=== PATIENT | female | born 1935 | race Two or more races ===

== ENCOUNTER 2018-09-09 17:05 | Inpatient (IN) | payer MEDICARE, OTHER ==
[~2018-09-09] VITALS: Ht 152.4 cm; Wt 71.3 kg
[2018-09-09 17:29] VITALS: BP 120/63
[2018-09-09] MEDS ORDERED: MORPHINE SULFATE 4 MG/ML SYR/VIAL IV PRN (18:00)
[2018-09-09] MEDS ORDERED: NITROGLYCERIN 0.4 MG SL TAB SL PRN (18:00)
[2018-09-09] MEDS ORDERED: ACETAMINOPHEN 500 MG TAB PO PRN (18:00)
[2018-09-09] MEDS ORDERED: ONDANSETRON HCL 4 MG/2 ML VIAL IV PRN (18:00)
[2018-09-09] MEDS ORDERED: hydrALAZINE HCL 20 MG/ML VL IV PRN (18:00)
[2018-09-09 18:40] VITALS: BP 120/63
[2018-09-09 19:30] LABS: Basophils # (auto) 0 uL; Basophils % (auto) 0.4 % (0.0-2.0); Eosinophils # (auto) 0.1 uL; Eosinophils % (auto) 1.7 % (0.0-7.0); Hematocrit 41.7 % (36.0-46.0); Hemoglobin 13.9 g/dL (12.2-16.2); Lymphocytes # (auto) 2.3 uL; Lymphocytes % (auto) 40.2 % (10.0-50.0); Mean Corpuscular Hemoglobin 32.7 pg (28.0-32.0); Mean Corpuscular Hgb Conc. 33.3 g/dL (32.0-36.0); Mean Corpuscular Volume 98.1 fL (80.0-100.0); Monocytes # (auto) 0.4 uL; Monocytes % (auto) 7.1 % (0.0-12.0); Neutrophils # (auto) 2.8 uL; Neutrophils % (auto) 50.6 % (37.0-80.0); Nucleated Red Blood Cells % 0.1 %; Platelet Count (auto) 168 10^3/uL (140-450); Red Blood Cells 4.25 10^6/uL (4.0-5.20); Red Cell Distribution Width 16.6 % (11.8-14.3); White Blood Cell 5.6 10^3/uL (4.4-10.8)
[2018-09-09 22:00] VITALS: BP 149/66
[2018-09-10] MEDS ORDERED: AML5T PO (03:11)
[2018-09-10] MEDS ORDERED: BISA-4 PO (03:11)
[2018-09-10] MEDS ORDERED: CARB25TA22 PO (03:11)
[2018-09-10] MEDS ORDERED: ACET-1156 PO (03:11)
[2018-09-10] MEDS ORDERED: RIV20T PO (03:11)
[2018-09-10] MEDS ORDERED: MOMLQ PO (03:11)
[2018-09-10] MEDS ORDERED: AMIO200T33 PO (03:11)
[2018-09-10] MEDS ORDERED: LISI40TA PO (03:11)
[2018-09-10 05:00] VITALS: BP 159/90
[2018-09-10 05:51] LABS: Potassium 3.8 mmol/L (3.5-5.1)
[2018-09-10 05:52] LABS: Albumin 2.9 g/dL (3.4-5.0); BUN/Creatinine Ratio 17.9; Calcium 8.3 mg/dL (8.5-10.1)
[2018-09-10 05:55] LABS: Bilirubin, Total 0.5 mg/dL (0.2-1.0); Total Protein 6.6 g/dL (6.4-8.2)
[2018-09-10 09:00] VITALS: BP 145/73
[2018-09-10] MEDS ORDERED: ASPirin 81 mg TAB PO SCH (10:00)
[2018-09-10 13:00] VITALS: BP 134/66
[2018-09-10 13:08] LABS: Cholesterol 209 mg/dL (< 200)
[2018-09-10 13:11] LABS: HDL Cholesterol 39 mg/dL (40-59); LDL Cholesterol 151 mg/dL (< 100); Triglycerides 111 mg/dL (< 150)
[2018-09-10 14:13] LABS: Folate (Folic Acid) 11.39 ng/mL (5.38-24)
[2018-09-10] MEDS: APIXABAN 5 MG TAB PO SCH ×2 (15:12→21:53)
[2018-09-10 16:28] VITALS: BP 140/53
[2018-09-10 22:00] VITALS: BP 120/56
[2018-09-10] MEDS ORDERED: ATORVASTATIN 20 MG TAB PO SCH (22:00)
[2018-09-11 05:00] VITALS: BP 105/50
[2018-09-11] MEDS: LEVOTHYROXINE SODIUM 50 MCG TAB PO SCH (06:30)
[2018-09-11] MEDS: APIXABAN 5 MG TAB PO SCH ×2 (09:47→22:27)
[2018-09-11 12:39] VITALS: BP 133/68
[2018-09-11 16:50] VITALS: BP 145/66
[2018-09-11] MEDS ORDERED: CYANOCOBALAMIN (B-12) 1000 MCG/1 ML VIAL IM ONE (21:00)
[2018-09-11 22:00] VITALS: BP 115/61
[2018-09-11] MEDS: ATORVASTATIN 20 MG TAB PO SCH (22:27)
[2018-09-12 05:00] VITALS: BP 140/60
[2018-09-12] MEDS: LEVOTHYROXINE SODIUM 50 MCG TAB PO SCH (06:46)
[2018-09-12 09:32] VITALS: BP 130/72
[2018-09-12] MEDS: CYANOCOBALAMIN 500 MCG TAB PO SCH (10:46)
[2018-09-12] MEDS: APIXABAN 5 MG TAB PO SCH ×2 (10:46→22:30)
[2018-09-12 12:45] VITALS: BP 129/71
[2018-09-12 17:00] VITALS: BP 146/77
[2018-09-12 22:00] VITALS: BP 117/65
[2018-09-12] MEDS: ATORVASTATIN 20 MG TAB PO SCH (22:30)
[2018-09-13 05:00] VITALS: BP 128/64
[2018-09-13] MEDS: LEVOTHYROXINE SODIUM 50 MCG TAB PO SCH (06:25)
[2018-09-13 09:18] VITALS: BP 151/89
[2018-09-13] MEDS: CYANOCOBALAMIN 500 MCG TAB PO SCH (10:30)
[2018-09-13] MEDS: APIXABAN 5 MG TAB PO SCH ×2 (10:30→22:31)
[2018-09-13 13:07] VITALS: BP 145/70
[2018-09-13 17:00] VITALS: BP 158/93
[2018-09-13 22:03] VITALS: BP 123/63
[2018-09-13] MEDS: ATORVASTATIN 20 MG TAB PO SCH (22:31)
[2018-09-14 05:00] VITALS: BP 134/78
[2018-09-14] MEDS: LEVOTHYROXINE SODIUM 50 MCG TAB PO SCH (06:23)
== END 2018-09-14 09:15 | DRG 391 ==
LOC: TELE-WESTW 17:05
PROVIDERS: ADMIT Internal Medicine; ATTEND Internal Medicine
DX: R13.10 Dysphagia, unspecified (principal); G93.41 Metabolic encephalopathy; I69.351 Hemiplegia and hemiparesis following cerebral infarction affecting right dominant side; I31.3 Pericardial effusion (noninflammatory); E03.9 Hypothyroidism, unspecified; I48.91 Unspecified atrial fibrillation; E53.8 Deficiency of other specified B group vitamins; F01.50 Vascular dementia, unspecified severity, without behavioral disturbance, psychotic disturbance, mood disturbance, and anxiety; G30.9 Alzheimer's disease, unspecified; I11.9 Hypertensive heart disease without heart failure; I77.810 Thoracic aortic ectasia; Z96.612 Presence of left artificial shoulder joint; Z96.641 Presence of right artificial hip joint; Z79.899 Other long term (current) drug therapy; Z91.018 Allergy to other foods; Z79.01 Long term (current) use of anticoagulants; Z81.1 Family history of alcohol abuse and dependence; Z83.6 Family history of other diseases of the respiratory system
CPT/HCPCS: 36415; 70551; 71045; 80053; 80061; 82607; 82746; 83036; 84443; 84484; 85025; 92610; 93306; 93886; 95819; 97110; 97163; 97530